=== PATIENT | male | born 2005 | race Two or more races ===

== ENCOUNTER 2023-09-18 21:34 | Emergency (ER) | payer SELFPAY ==
[2023-09-18 21:42] VITALS: BP 116/72; PULSE 85; RESP 18; TEMP 98.5; BMI 25.8
== END 2023-09-18 23:08 | disposition home or self-care (01) ==
LOC: JERFT 21:34
DX: R51.9 Headache, unspecified (principal); M54.2 Cervicalgia
CPT/HCPCS: 99282-25